=== PATIENT | male | born 1990 | race Native Hawaiian/Other Pacific Islander ===

== ENCOUNTER 2017-11-06 23:46 | Emergency (ER) | payer OTHER ==
[2017-11-06 23:54] VITALS: RESP 16
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
[2017-11-07 04:17] VITALS: BP 127/71; PULSE 72; TEMP 97.9
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
[2017-11-09 05:25] VITALS: O2SAT 96
== END 2017-11-07 04:05 | disposition home or self-care (01) ==
LOC: H.ER 23:46
DX: S00.83XA Contusion of other part of head, initial encounter (principal); S92.352A Displaced fracture of fifth metatarsal bone, left foot, initial encounter for closed fracture; F17.210 Nicotine dependence, cigarettes, uncomplicated; F10.10 Alcohol abuse, uncomplicated; V43.52XA Car driver injured in collision with other type car in traffic accident, initial encounter; Y92.410 Unspecified street and highway as the place of occurrence of the external cause